=== PATIENT | female | born 1995 | race African-American/Black ===

== ENCOUNTER 2016-05-28 00:45 | Emergency (ER) | payer MEDICAID, OTHER, SELFPAY ==
[2016-05-28] MEDS ORDERED: HYDROcodone/Acetaminophen 10/325 mg Tablet ONE (01:36)
[2016-05-28] MEDS ORDERED: Naproxen 500 MG TAB ONE (01:37)
[2016-05-28] MEDS ORDERED: Sulfameth/Trimethoprim DS 800-160mg TAB ONE (01:37)
[2016-05-28] MEDS ORDERED: cefTRIAXone\\ROCEPHIN 500 MG VIAL ONE (01:37)
[2016-05-28] MEDS ORDERED: Cephalexin 500 MG CAP ONE (01:38)
--- NOTE | 2016-05-28 02:34 | PICIS ---
[facility] EMERGENCY RECORD TRIAGE (00:51 JDEA) TRIAGE NOTES: pt in for complaints of a boil to the back of her neck x two days, states that it was smaller yesterday and has spread since. (00:51 JDEA) PATIENT: NAME: Sneha Lua, AGE: 21, GENDER: female, : Sat1995, TIME OF GREET: SatMay 28, 2016 00:45, PREFERRED LANGUAGE: Vietnamese, ETHNICITY: Not or , FALL RISK: NO, ECODE BILLING MAP: [facility], SSN: [id number], Zip Code: [address], KG WEIGHT: [phone], PHONE: , , , PERSON ID: [id number], PCP: none. (00:51 JDEA) COMPLAINT: BOIL ON NECK. (00:51 JDEA) ADMISSION: URGENCY: 4 Non Urgent, ADMISSION SOURCE: Home, TRANSPORT: Walk-in, BED: TRIAGE. (00:51 JDEA) IMMUNIZATIONS: Flu vaccine not up to date, Tetanus immunization up to date, Pneumococcal vaccine not up to date. (00:52 JDEA) TRIAGE SCREENING: Patient denies suicidal ideation, Patient denies presence of domestic violence. (00:52 JDEA) LMP: Last menstrual period: 05/14/2016. (00:52 JDEA) PROVIDERS: TRIAGE NURSE: Nina Sebastian RN. (00:51 JDEA) VITAL SIGNS: BP 149/86, Pulse 103, Resp 20, Temp 98.2, (Oral), Pain 8, O2 Sat 97, on Room Air, Time 05/28/2016 00:50. (00:50 JDEA) PREVIOUS VISIT ALLERGIES: No Known Allergies. (00:51 JDEA) No Known Allergies. (00:52 JDEA) KNOWN ALLERGIES No Known Allergies CURRENT MEDICATIONS (00:53 JDEA) albuterol sulfate: HFA AEROSOL WITH ADAPTER (GRAM) : Strength - 90 mcg : INHALATION Patient Dose: 2 puff(s) INHALATION every 4 hours prn. VITAL SIGNS (00:50 JDEA) VITAL SIGNS: BP: 149/86, Pulse: 103, Resp: 20, Temp: 98.2 (Oral), Pain: 8, O2 sat: 97 on Room Air, Time: 05/28/2016 00:50. NURSING ASSESSMENT: SKIN (00:53 JDEA) CONSTITUTIONAL: Complex assessment performed, Patient arrives ambulatory, Gait steady, History obtained from patient, Patient appears comfortable, Patient cooperative, Patient alert, Oriented to person, place and time, Skin warm, Skin dry, Skin normal in color, Mucous membranes pink, Mucous membranes moist, Patient complains of neck pain, pt in for complaints of an area of swelling to the posterior surface of her neck, states it has been there for two days and has gotten worse not better, states she feels like it is spreading without drainage. PAIN: dull pain, constant, on a scale 0-10 patient rates pain as 8. &a-1R&a+25V*p+0X*s8117V*c202B*c15G*c2P*p-0X&a-25V&a+1R Name: Sneha Lua : 1995 F21 MedRec: [id number] AcctNum: [id number] Prepared: SatMay 28, 2016 02:09 by Interface Page 1 of 7 pMD [facility] EMERGENCY RECORD SKIN: Skin assessment findings include skin warm, Skin dry, Skin normal in color. ENRIQUE SCALE: (4) Sensory perception has no impairment, (3) Skin is occasionally moist, (3) Patient walks occasionally, (3) Slightly limited mobility, (3) Adequate nutrition, (2) Patient has potential problem moving, Enrique Risk Total: 18. NOTES: Patient tolerated procedure well. SAFETY: Side rails up, Cart/Stretcher in lowest position, Family at bedside, Call light within reach, Hospital ID band on. NURSING PROCEDURE: DISCHARGE NOTE (01:59 JDEA) DISCHARGE: Patient discharged to home, ambulating without assistance, family driving, accompanied by other family member, Summary of Care printed/ provided, Patient requested and was provided an electronic copy of Discharge Instructions, Transition record given to patient, Discharge instructions given to patient, Simple or moderate discharge teaching performed, Prescriptions given and instructions on side effects given, Above person(s) verbalized understanding of discharge instructions and follow-up care, Patient treated and evaluated by physician. BELONGINGS: Belongings and valuables with patient at time of discharge include:, Belongings remain with patient. ORDER DETAILS Order Name: Culture & GS, Bacterial/Wound, Status: Active, Time: 01:34 05/28/2016, User: LEONARD, - Ordered for: MD Gaytan Lloyd, - Entered by: MD Gaytan Lloyd - SatMay 28, 2016 01:34, - Quantity: 1. MEDICATION ADMINISTRATION SUMMARY Drug Name: Stamford, Dose Ordered: 10-325 mg, Route: Oral, Status: Given, Time: 01:56 05/28/2016, Drug Name: Septra DS, Dose Ordered: 1 tab(s), Route: Oral, Status: Given, Time: 01:56 05/28/2016, Drug Name: Naprosyn, Dose Ordered: 500 mg, Route: Oral, Status: Given, Time: :56 05/28/2016, Drug Name: Cefanex, Dose Ordered: 500 mg, Route: Oral, Status: Given, Time: 01:56 05/28/2016, Detailed record available in Medication Service section. MEDICATION SERVICE (01:56 LEONARD) Cefanex: Order: Cefanex (cephalexin monohydrate) - Dose: 500 mg : Oral Schedule: Now Ordered by: Joaquin Gaytan MD Entered by: Joaquin Gaytan MD SatMay 28, 2016 01:32 , &a-1R&a+25V*p+0X*v7192S*c202B*c15G*c2P*p-0X&a-25V&a+1R Name: Sneha Lua : 1995 F21 MedRec: [id number] AcctNum: [id number] Prepared: SatMay 28, 2016 02:09 by Interface Page 2 of 7 pMD [facility] EMERGENCY RECORD Acknowledged by: Nina Sebastian RN SatMay 28, 2016 01:33 Documented as given by: Nina Sebastian RN SatMay 28, 2016 01:56 Patient, Medication, Dose, Route and Time verified prior to administration. Amount given: 1 tab, Site: Medication administered P.O., Correct patient, time, route, dose and medication confirmed prior to administration, Patient advised of actions and side-effects prior to administration, Allergies confirmed and medications reviewed prior to administration, Patient in position of comfort, Side rails up, Cart in lowest position, Family at bedside, Call light in reach. Naprosyn: Order: Naprosyn (naproxen) - Dose: 500 mg : Oral Schedule: Now Ordered by: Joaquin Gaytan MD Entered by: Joaquin Gaytan MD SatMay 28, 2016 01:32 , Acknowledged by: Nina Sebastian RN SatMay 28, 2016 01:33 Documented as given by: Nina Sebastian RN SatMay 28, 2016 01:56 Patient, Medication, Dose, Route and Time verified prior to administration. Amount given: 1 tab, Site: Medication administered P.O., Correct patient, time, route, dose and medication confirmed prior to administration, Patient advised of actions and side-effects prior to administration, Allergies confirmed and medications reviewed prior to administration, Patient in position of comfort, Side rails up, Cart in lowest position, Family at bedside, Call light in reach. Stamford: Order: Stamford (hydrocodone bitartrate/acetaminophen) - Dose: 10-325 mg : Oral Schedule: Now Ordered by: Joaquin Gaytan MD Entered by: Joaquin Gaytan MD SatMay 28, 2016 01:32 , Acknowledged by: Nina Sebastian RN SatMay 28, 2016 01:33 Documented as given by: Nina Sebastian RN SatMay 28, 2016 01:56 Patient, Medication, Dose, Route and Time verified prior to administration. Amount given: 1 tab, Site: Medication administered P.O., Correct patient, time, route, dose and medication confirmed prior to administration, Patient advised of actions and side-effects prior to administration, Allergies confirmed and medications reviewed prior to administration, Patient in position of comfort, Side rails up, Cart in lowest position, Family at bedside, Call light in reach. Septra DS: Order: Septra DS (sulfamethoxazole/trimethoprim) - Dose: 1 tab(s) : Oral Schedule: Now Ordered by: Joaquin Gaytan MD Entered by: Joaquin Gaytan MD SatMay 28, 2016 01:32 , Acknowledged by: Nina Sebastian RN SatMay 28, 2016 01:33 Documented as given by: Nina Sebastian RN SatMay 28, 2016 01:56 Patient, Medication, Dose, Route and Time verified prior to administration. Amount given: 1 tab, Site: Medication administered P.O., Correct &a-1R&a+25V*p+0X*h2482M*c202B*c15G*c2P*p-0X&a-25V&a+1R Name: Sneha Lua : 1995 F21 MedRec: [id number] AcctNum: [id number] Prepared: SatMay 28, 2016 02:09 by Interface Page 3 of 7 pMD [facility] EMERGENCY RECORD patient, time, route, dose and medication confirmed prior to administration, Patient advised of actions and side-effects prior to administration, Allergies confirmed and medications reviewed prior to administration, Patient in position of comfort, Side rails up, Cart in lowest position, Family at bedside, Call light in reach. HPI ABSCESS (01:42 LLDO) CHIEF COMPLAINT: Patient presents for evaluation of swelling, Patient presents for evaluation of pain, Denies drainage from wound, Denies suspected foreign body, Patient presents for evaluation of has had numerous superficial skin abscesses before now, but none were ever large enough to require I&D. this one about the size of a quarter and very painful. can't sleep or move her head. HISTORIAN: History provided by patient, History provided by patient's family, MOM. LOCATION: Symptoms are localized. QUALITY: Pain is dull in nature, described as aching, described as pressure-like, described as BECOMES SHARP WITH MOVEMENT OR PALPATION. SEVERITY: Maximum severity of symptoms severe, Currently symptoms are moderate, MODERATE AT REST. TIME COURSE: Gradual onset of symptoms, Symptoms are worsening, are constant. ASSOCIATED WITH: No associated chills, No associated drainage, No associated fever, No associated nausea, No associated proximal streaking, Associated with warmth, Denies any other complaints. COMPLICATING FACTORS: No complicating factors for wound healing. EXACERBATED BY: Patient's condition exacerbated by MOVEMENT, PALPATION. RELIEVED BY: Patient's condition relieved by nothing. TETANUS: Tetanus status up to date. ROS CONSTITUTIONAL: Negative constitutional review of systems. (01:45 LLDO) EYES: Negative eye review of systems, Historian denies eye pain, denies eye redness, denies eye discharge. (01:47 LLDO) ENT: Negative ears, nose, throat review of systems, Historian denies epistaxis, denies rhinorrhea, denies sinus pain, denies sore throat. (01:47 LLDO) MUSCULOSKELETAL: Historian reports neck pain. (01:45 LLDO) SKIN: Historian reports skin changes, reports skin lesions. IN HPI. (01:45 LLDO) NEUROLOGIC: Negative neurologic review of systems, Historian denies confusion, denies dizziness, denies focal weakness, denies mental status changes. (01:47 LLDO) HEMO/LYMPHATIC: Normal hematologic/lymphatic system review, Historian denies abnormal blood clotting, denies gum bleeding, denies petechiae. (01:47 LLDO) &a-1R&a+25V*p+0X*k0692J*c202B*c15G*c2P*p-0X&a-25V&a+1R Name: Sneha Lua : 1995 F21 MedRec: [id number] AcctNum: [id number] Prepared: SatMay 28, 2016 02:09 by Interface Page 4 of 7 pMD [facility] EMERGENCY RECORD ALLERGIC/IMMUNOLOGIC: Normal allergy/immunologic system review, Historian denies eczema, denies environmental allergies, denies food allergies. (01:47 LLDO) PSYCHIATRIC: Negative psychiatric review of systems, Historian denies alcohol abuse, denies anxiety, denies depression, denies drug abuse, denies hallucinations. (01:47 LLDO) NOTES: All systems reviewed, negative except as described above. (01:45 LLDO) PAST MEDICAL HISTORY MEDICAL HISTORY: NIDDM, ASTHMA, OBESITY GOUT. (00:52 JDEA) FEMALE SURGICAL HISTORY: Surgical history of tonsillectomy, ADENOIDS. (00:52 JDEA) PSYCHIATRIC HISTORY: Psychiatric history includes, bipolar disorder, ADHD. (00:52 JDEA) SOCIAL HISTORY: Lives at home, with family, Patient denies alcohol use, Patient denies drug use, Patient currently uses tobacco, smokes cigarettes, daily, Patient smokes 1 pack per day. (00:52 JDEA) NOTES: Nursing records reviewed, Agree with nursing records, Medication list reviewed. (01:46 LLDO) PHYSICAL EXAM CONSTITUTIONAL: Vital signs reviewed, Patient afebrile, Pulse, tachycardic, 103, Blood pressure, BP ELEVATED SLIGHTLY, Respiratory rate normal, Patient appears, uncomfortable, Patient appears in pain, in moderate pain distress, INTERMITTENTLY SEVERE, Patient alert and oriented to person, place and time. (01:45 LLDO) HEAD: Head exam normal, Head exam included findings of head atraumatic, normocephalic. (01:47 LLDO) EYES: Eye exam normal, Eye exam included findings of eyelids normal to inspection, Pupils equally round and reactive to light, Extraocular muscles intact. (01:47 LLDO) ENT: ENT exam normal, Ear exam normal, Nose exam normal. (01:47 LLDO) NECK: Tenderness, midline, SEE HPI. (01:45 LLDO) BACK: Back exam normal, Back exam included findings of normal inspection, range of motion normal. (01:47 LLDO) UPPER EXTREMITY: Upper extremity exam normal, Upper extremity exam included findings of inspection normal, Range of motion normal. (01:47 LLDO) LOWER EXTREMITY: Lower extremity exam normal, Lower extremity exam included findings of inspection normal, Range of motion normal. (01:47 LLDO) NEURO: Neuro exam normal, Neuro exam findings include patient oriented to person, place and time, Speech normal, Terra coma scale &a-1R&a+25V*p+0X*g9737E*c202B*c15G*c2P*p-0X&a-25V&a+1R Name: Sneha Lua : 1995 F21 MedRec: [id number] AcctNum: [id number] Prepared: SatMay 28, 2016 02:09 by Interface Page 5 of 7 pMD [facility] EMERGENCY RECORD 15. (01:47 LLDO) SKIN: Skin exam included findings of skin warm, dry, and normal in color, ABSCESS NOTED ABOVE. (01:45 LLDO) PSYCHIATRIC: Psychiatric exam normal, Psychiatric exam included findings of patient oriented to person place and time, Normal affect. (01:47 LLDO) EVENTS TRANSFER: Triage to Emergency Triage. (SatMay 28, 2016 00:51 JDEA) Emergency Triage to Main ED -05. (00:52 JDEA) Removed from Emergency Main ED -05. (02:00 JDEA) INCISION AND DRAINAGE (01:47 LLDO) TIMEOUT: Side and/or site verified, Patient identification confirmed, Sterile procedures observed. INCISION AND DRAINAGE: Side and/or site verified, Patient identification confirmed, Sterile procedures observed, Verbal consent obtained, Incision and drainage indicated for cutaneous abscess, There are no contraindications, 1% Lidocaine without epinephrine used, 6 mLs, Incision and drainage of skin abscess, Incision was made over area of fluctuance, Explored for loculations, Irrigated, Packed with sterile gauze, Drained serosanguinous, After procedure, wound dressed, After procedure, neurovascular status normal, There were no complications, Tetanus status up to date, Patient tolerated the procedure with difficulty, see hpi. PROBLEM LIST No recorded problems DIAGNOSIS (01:35 LLDO) FINAL: PRIMARY: Abscess on posterior neck. DISPOSITION PATIENT: Disposition Type: Discharge, Disposition: *Discharge Home. (:35 LLDO) Patient left the department. (02:00 JDEA) INSTRUCTION (:38 LLDO) DISCHARGE: ABSCESS, I AND D. FOLLOWUP: Follow up with Primary Care Physician as needed. SPECIAL: Follow-up with your PCP. PRESCRIPTION (01:36 LLDO) Keflex: CAPSULE (HARD, SOFT, ETC.) : 500 mg : ORAL : Quantity: 1 Unit: cap(s) Route: ORAL Schedule: 3 times a day Dispense: 30 May substitute. Refills: No Refills . NOTES: No Refills. Septra DS: TABLET : 800 mg-160 mg : ORAL : Quantity: 1 &a-1R&a+25V*p+0X*k9179X*c202B*c15G*c2P*p-0X&a-25V&a+1R Name: Sneha Lua Kourtney : 1995 F21 MedRec: [id number] AcctNum: [id number] Prepared: SatMay 28, 2016 02:09 by Interface Page 6 of 7 pMD [facility] EMERGENCY RECORD Unit: tab(s) Route: ORAL Schedule: 2 times a day (before meals) Dispense: 20 May substitute. Refills: No Refills . NOTES: ^s=No Refills No Refills. Tylenol-Codeine #3: TABLET : 300 mg-30 mg : ORAL : Quantity: 1-2 Unit: tab(s) Route: ORAL Schedule: every 4 hours prn Dispense: 24 Unit: tab(s) May substitute. Refills: No Refills . NOTES: ^s=^s=No Refills No Refills No Refills. IMAGING (02:00 KALYN) *DISCHARGE INSTRUCTIONS RECEIPT: Image captured from scanner. *SUPPLY CHARGE SHEET: Image captured from scanner. ADMIN (01:52 LEONARD) DIGITAL SIGNATURE: MD Gaytan Lloyd. Chowdary: KALYN=SHAYY Sebastian Justine LLDO=MD Gaytan Lloyd &a-1R&a+25V*p+0X*i7275U*c202B*c15G*c2P*p-0X&a-25V&a+1R Name: Sneha Lua : 1995 F21 MedRec: [id number] AcctNum: [id number] Prepared: SatMay 28, 2016 02:09 by Interface Page 7 of 7 pMD [facility] MEDICATION RECONCILIATION You were seen in the Emergency Department on: SatMay 28, 2016 KNOWN ALLERGIES No Known Allergies MEDICATIONS GIVEN WHILE IN THE EMERGENCY DEPARTMENT Naprosyn (naproxen) - Dose: 500 milligram(s) : Oral [place] (hydrocodone bitartrate/acetaminophen) - Dose: 10-325 milligram(s) : Oral Septra DS (sulfamethoxazole/trimethoprim) - Dose: 1 tab(s) : Oral Cefanex (cephalexin monohydrate) - Dose: 500 milligram(s) : Oral HOME MEDICATIONS CONTINUE PRESCRIBED albuterol sulfate : HFA AEROSOL WITH ADAPTER (GRAM) : Strength - 90 mcg : INHALATION Continue as prescribed Patient had been takin puff(s) INHALATION every 4 hours prn. Notes from the emergency department Reviewed with family Reviewed with patient PRESCRIPTIONS (3) Printed (3) Keflex : CAPSULE (HARD, SOFT, ETC.) : 500 mg : ORAL Quantity: 1, Unit: cap(s), Route: ORAL, Schedule: 3 times a day, Dispense: 30 Septra DS : TABLET : 800 mg-160 mg : ORAL Quantity: 1, Unit: tab(s), Route: ORAL, Schedule: 2 times a day (before meals), Dispense: 20 &a-1R&a+25V*p+0X*i7471Z*c202B*c15G*c2P*p-0X&a-25V&a+1R Name: Sneha Lua : 1995 F21 MedRec: [id number] AcctNum: [id number] Prepared: SatMay 28, 2016 02:09 by Interface pMD CON
--- NOTE | 2016-05-28 02:34 | ERRECORD ---
[facility] EMERGENCY RECORD HPI ABSCESS (01:42 LLDO) CHIEF COMPLAINT: Patient presents for evaluation of swelling, Patient presents for evaluation of pain, Denies drainage from wound, Denies suspected foreign body, Patient presents for evaluation of has had numerous superficial skin abscesses before now, but none were ever large enough to require I&D. this one about the size of a quarter and very painful. can't sleep or move her head. HISTORIAN: History provided by patient, History provided by patient's family, MOM. LOCATION: Symptoms are localized. QUALITY: Pain is dull in nature, described as aching, described as pressure-like, described as BECOMES SHARP WITH MOVEMENT OR PALPATION. SEVERITY: Maximum severity of symptoms severe, Currently symptoms are moderate, MODERATE AT REST. TIME COURSE: Gradual onset of symptoms, Symptoms are worsening, are constant. ASSOCIATED WITH: No associated chills, No associated drainage, No associated fever, No associated nausea, No associated proximal streaking, Associated with warmth, Denies any other complaints. COMPLICATING FACTORS: No complicating factors for wound healing. EXACERBATED BY: Patient's condition exacerbated by MOVEMENT, PALPATION. RELIEVED BY: Patient's condition relieved by nothing. TETANUS: Tetanus status up to date. ROS CONSTITUTIONAL: Negative constitutional review of systems. (:45 LLDO) EYES: Negative eye review of systems, Historian denies eye pain, denies eye redness, denies eye discharge. (:47 LLDO) ENT: Negative ears, nose, throat review of systems, Historian denies epistaxis, denies rhinorrhea, denies sinus pain, denies sore throat. (:47 LLDO) MUSCULOSKELETAL: Historian reports neck pain. (:45 LLDO) SKIN: Historian reports skin changes, reports skin lesions. IN HPI. (:45 LLDO) NEUROLOGIC: Negative neurologic review of systems, Historian denies confusion, denies dizziness, denies focal weakness, denies mental status changes. (:47 LLDO) HEMO/LYMPHATIC: Normal hematologic/lymphatic system review, Historian denies abnormal blood clotting, denies gum bleeding, denies petechiae. (:47 LLDO) ALLERGIC/IMMUNOLOGIC: Normal allergy/immunologic system review, Historian denies eczema, denies environmental allergies, denies food allergies. (:47 LLDO) PSYCHIATRIC: Negative psychiatric review of systems, Historian denies alcohol abuse, denies anxiety, denies depression, denies drug abuse, denies hallucinations. (01:47 LLDO) &a-1R&a+25V*p+0X*a3735G*c202B*c15G*c2P*p-0X&a-25V&a+1R Name: Sneha Lua : 1995 F21 MedRec: [id number] AcctNum: [id number] Prepared: SatMay 28, 2016 02:03 by Interface Page 1 of 4 pMD [facility] EMERGENCY RECORD NOTES: All systems reviewed, negative except as described above. (01:45 LLDO) PAST MEDICAL HISTORY MEDICAL HISTORY: NIDDM, ASTHMA, OBESITY GOUT. (00:52 JDEA) FEMALE SURGICAL HISTORY: Surgical history of tonsillectomy, ADENOIDS. (00:52 JDEA) PSYCHIATRIC HISTORY: Psychiatric history includes, bipolar disorder, ADHD. (00:52 JDEA) SOCIAL HISTORY: Lives at home, with family, Patient denies alcohol use, Patient denies drug use, Patient currently uses tobacco, smokes cigarettes, daily, Patient smokes 1 pack per day. (00:52 JDEA) NOTES: Nursing records reviewed, Agree with nursing records, Medication list reviewed. (01:46 LLDO) KNOWN ALLERGIES No Known Allergies CURRENT MEDICATIONS (00:53 JDEA) albuterol sulfate: HFA AEROSOL WITH ADAPTER (GRAM) : Strength - 90 mcg : INHALATION Patient Dose: 2 puff(s) INHALATION every 4 hours prn. VITAL SIGNS (00:50 JDEA) VITAL SIGNS: BP: 149/86, Pulse: 103, Resp: 20, Temp: 98.2 (Oral), Pain: 8, O2 sat: 97 on Room Air, Time: 05/28/2016 00:50. PHYSICAL EXAM CONSTITUTIONAL: Vital signs reviewed, Patient afebrile, Pulse, tachycardic, 103, Blood pressure, BP ELEVATED SLIGHTLY, Respiratory rate normal, Patient appears, uncomfortable, Patient appears in pain, in moderate pain distress, INTERMITTENTLY SEVERE, Patient alert and oriented to person, place and time. (01:45 LLDO) HEAD: Head exam normal, Head exam included findings of head atraumatic, normocephalic. (01:47 LLDO) EYES: Eye exam normal, Eye exam included findings of eyelids normal to inspection, Pupils equally round and reactive to light, Extraocular muscles intact. (01:47 LLDO) ENT: ENT exam normal, Ear exam normal, Nose exam normal. (01:47 LLDO) NECK: Tenderness, midline, SEE HPI. (01:45 LLDO) BACK: Back exam normal, Back exam included findings of normal inspection, range of motion normal. (01:47 LLDO) UPPER EXTREMITY: Upper extremity exam normal, Upper extremity exam included findings of inspection normal, Range of motion normal. &a-1R&a+25V*p+0X*w1058T*c202B*c15G*c2P*p-0X&a-25V&a+1R Name: Sneha Lua : 1995 F21 MedRec: [id number] AcctNum: [id number] Prepared: SatMay 28, 2016 02:03 by Interface Page 2 of 4 pMD [facility] EMERGENCY RECORD (01:47 LLDO) LOWER EXTREMITY: Lower extremity exam normal, Lower extremity exam included findings of inspection normal, Range of motion normal. (01:47 LLDO) NEURO: Neuro exam normal, Neuro exam findings include patient oriented to person, place and time, Speech normal, Edison coma scale 15. (01:47 LLDO) SKIN: Skin exam included findings of skin warm, dry, and normal in color, ABSCESS NOTED ABOVE. (01:45 LLDO) PSYCHIATRIC: Psychiatric exam normal, Psychiatric exam included findings of patient oriented to person place and time, Normal affect. (01:47 LLDO) MEDICATION ADMINISTRATION SUMMARY Drug Name: Fulton, Dose Ordered: 10-325 mg, Route: Oral, Status: Given, Time: :56 05/28/2016, Drug Name: Septra DS, Dose Ordered: 1 tab(s), Route: Oral, Status: Given, Time: :05/28/2016, Drug Name: Naprosyn, Dose Ordered: 500 mg, Route: Oral, Status: Given, Time: :56 05/28/2016, Drug Name: Cefanex, Dose Ordered: 500 mg, Route: Oral, Status: Given, Time: :05/28/2016, Detailed record available in Medication Service section. PROBLEM LIST No recorded problems DIAGNOSIS (01:35 LLDO) FINAL: PRIMARY: Abscess on posterior neck. PRESCRIPTION (:36 LLDO) Keflex: CAPSULE (HARD, SOFT, ETC.) : 500 mg : ORAL : Quantity: 1 Unit: cap(s) Route: ORAL Schedule: 3 times a day Dispense: 30 May substitute. Refills: No Refills . NOTES: No Refills. Septra DS: TABLET : 800 mg-160 mg : ORAL : Quantity: 1 Unit: tab(s) Route: ORAL Schedule: 2 times a day (before meals) Dispense: 20 May substitute. Refills: No Refills . NOTES: ^s=No Refills No Refills. Tylenol-Codeine #3: TABLET : 300 mg-30 mg : ORAL : Quantity: 1-2 Unit: tab(s) Route: ORAL Schedule: every 4 hours prn Dispense: 24 Unit: tab(s) May substitute. Refills: No Refills . NOTES: ^s=^s=No Refills No Refills No Refills. &a-1R&a+25V*p+0X*y7747D*c202B*c15G*c2P*p-0X&a-25V&a+1R Name: Sneha Lua : 1995 F21 MedRec: [id number] AcctNum: [id number] Prepared: Layne May 28, 2016 02:03 by Interface Page 3 of 4 pMD [facility] EMERGENCY RECORD DISPOSITION PATIENT: Disposition Type: Discharge, Disposition: *Discharge Home. (01:35 LLDO) Patient left the department. (02:00 KALYN) Chowdary: KALYN=SHAYY Sebastian, Nina VALLE=MD Gaytan Lloyd &a-1R&a+25V*p+0X*s5416G*c202B*c15G*c2P*p-0X&a-25V&a+1R Name: Sneha Lua : 1995 F21 MedRec: [id number] AcctNum: [id number] Prepared: Layne May 28, 2016 02:03 by Interface Page 4 of 4 pMD MTDD
[2016-05-28] MEDS ORDERED: Lidocaine 1% 20 ML MDV ONE (08:33)
== END 2016-05-28 01:59 | disposition home or self-care (01) ==
LOC: MADERS 00:45
DX: L02.11 Cutaneous abscess of neck (principal); F90.9 Attention-deficit hyperactivity disorder, unspecified type; E11.9 Type 2 diabetes mellitus without complications; J45.909 Unspecified asthma, uncomplicated; F17.210 Nicotine dependence, cigarettes, uncomplicated; F31.9 Bipolar disorder, unspecified
CPT/HCPCS: 10060; 87070; 87205; J0696; J2001

== ENCOUNTER 2016-10-03 14:20 | Emergency (ER) | payer OTHER, SELFPAY ==
[2016-10-03] MEDS ORDERED: Acetaminophen/Codeine 30-300mg Tablet ONE (14:48)
[2016-10-03] MEDS ORDERED: Penicillin V Potassium 250 MG TAB ONE (14:48)
== END 2016-10-03 14:50 | disposition home or self-care (01) ==
LOC: MADERS 14:20
DX: K12.2 Cellulitis and abscess of mouth (principal); J45.909 Unspecified asthma, uncomplicated; E11.9 Type 2 diabetes mellitus without complications; F31.9 Bipolar disorder, unspecified; F90.9 Attention-deficit hyperactivity disorder, unspecified type; F17.210 Nicotine dependence, cigarettes, uncomplicated
CPT/HCPCS: 99283

== ENCOUNTER 2018-07-29 20:35 | Emergency (ER) | payer MEDICAID, SELFPAY ==
[2018-07-29] MEDS ORDERED: HYDROcodone/Acetaminophen 5/325 mg Tablet ONE (20:57)
[2018-07-29] MEDS ORDERED: Clindamycin 150 MG CAP ONE (20:57)
[2018-07-29] MEDS ORDERED: Lidocaine 2% w/Epinephrine 1:200K 20 ML VIAL ONE (20:57)
[2018-07-29] MEDS ORDERED: Dexamethasone 10 MG/ML VIAL ONE (21:41)
[2018-07-29] MEDS ORDERED: Bacitracin Zinc 1 Packet ONE (21:52)
== END 2018-07-29 22:00 | disposition home or self-care (01) ==
LOC: MADERS 20:35
DX: L02.212 Cutaneous abscess of back [any part, except buttock and flank] (principal); L02.11 Cutaneous abscess of neck; L03.312 Cellulitis of back [any part except buttock and flank]; L03.221 Cellulitis of neck; E11.9 Type 2 diabetes mellitus without complications; J45.909 Unspecified asthma, uncomplicated; F31.9 Bipolar disorder, unspecified; F90.9 Attention-deficit hyperactivity disorder, unspecified type; F17.210 Nicotine dependence, cigarettes, uncomplicated
CPT/HCPCS: 10061; J1100

== ENCOUNTER 2020-08-15 19:29 | Emergency (ER) | payer BC ==
[2020-08-15] MEDS ORDERED: Acetaminophen 500 MG TAB ONE (20:10)
[2020-08-15] MEDS ORDERED: Dicyclomine 10 MG CAP ONE (20:11)
[2020-08-15 20:32] LABS: Bilirubin Negative (Negative); Blood, Urine Large (Negative); Clarity Clear (Clear); Glucose, Urine (Dipstick) Negative (Negative); Ketone, Urine Negative (Negative); Leukocyte Negative (Negative); Nitrite Negative (Negative); Protein, Urine (Dipstick) Negative (Neg-Trace); Specific Gravity, Urine 1.025 (1.005-1.030); Urobilinogen 0.2 mg/dL (Less than 2)
[2020-08-15 20:33] LABS: Pregnancy Test - Urine (BHCG) Negative (Negative); Pregu Control Background? CLEAR/WHITE (CLR/WHITE); Pregu Control Bar Appear? YES (CONTROL BAR); Specific Gravity 1.025 (1.002-1.036)
[2020-08-15 20:41] LABS: ALT (SGPT) 13 U/L (8-55); AST (SGOT) 13 U/L (5-34); Alkaline Phosphatase 96 U/L (40-110); Anion Gap 17 mmol/L (10-20); BUN (Urea Nitrogen) 10 mg/dL (7.0-18.7); Bilirubin, Total 0.2 mg/dL (0.2-1.2); Calc. Creatinine Clearance 0 mL/min (70-130); Calcium 8.8 mg/dL (7.8-10.44); Carbon Dioxide 22 mmol/L (22-29); Chloride 106 mmol/L (98-107); Globulin 3.4 g/dL (2.4-3.5); Glucose 195 mg/dL (70-105); Potassium 4.6 mmol/L (3.5-5.1); Protein, Total 7.4 g/dL (6.0-8.3); Sodium 140 mmol/L (136-145)
[2020-08-15 20:46] LABS: Bacteria/HPF Rare-Few HPF (None Seen); WBC/HPF 0-3 HPF (0-3)
[2020-08-15 21:00] LABS: #Basophils 0.1 thou/uL (0.0-0.2); #Eosinphils 0.2 thou/uL (0.0-0.7); #Lymphocytes 4.2 thou/uL (1.20-3.40); #Monocytes 1.1 thou/uL (0.11-0.59); #Neutrophils 9.9 thou/uL (1.40-6.50); %Basophils 0.8 % (0.0-1.0); %Eosinophils 1.5 % (0.0-10.0); %Monocytes 7.1 % (0.0-10.0); %Neutrophils 63.6 % (42.0-75.0); Anisocytosis SLIGHT = 6-15 cells (100X) (0-5/hpf); Hemoglobin 9.6 g/dL (12.0-16.0); Hypochromia SLIGHT = 6-15 cells (100X) (0-5/hpf); MDiff Complete? YES; Mean Corpuscular HGB CONC 27.5 g/dL (32.0-36.0); Mean Corpuscular Volume 65.5 fL (78.0-98.0); Mean Platelet Volume 9.6 fL (7.4-10.4); Microcytosis SLIGHT = 6-15 cells (100X) (0-5/hpf); Ovalocytes SLIGHT = 2-5 cells (100X) (0-1/hpf); Platelet Count 448 thou/uL (130-400); Platelet Morphology Comment Appears Adequate; RBC Distribution Width 17.8 % (11.5-14.5); Red Blood Cell (RBC) Count 5.33 mill/uL (4.20-5.40); White Blood Cell (WBC) Count 15.6 thou/uL (4.8-10.8)
== END 2020-08-15 21:55 | disposition home or self-care (01) ==
LOC: MADERS 19:29
DX: K52.9 Noninfective gastroenteritis and colitis, unspecified (principal); D50.9 Iron deficiency anemia, unspecified; E11.9 Type 2 diabetes mellitus without complications; J45.909 Unspecified asthma, uncomplicated; F17.210 Nicotine dependence, cigarettes, uncomplicated
CPT/HCPCS: 36416; 80053; 81003; 81015; 81025; 85025; 99284; J0500

== ENCOUNTER 2020-11-25 09:57 | Outpatient (CLI) | payer BC | END 2020-11-25 09:58 | disposition home or self-care (01) | LOC: MADRAD 09:57 | PROVIDERS: ATTEND Family Medicine | DX: Z11.1 Encounter for screening for respiratory tuberculosis (principal) | CPT/HCPCS: 71046 ==

== ENCOUNTER 2021-01-18 08:38 | Observation (INO) | payer BC ==
[2021-01-18] MEDS ORDERED: Ondansetron ODT 4 MG TAB PO PRN (09:05)
[2021-01-18 09:47] LABS: Hemoglobin 6.3 g/dL (12.0-16.0); Mean Corpuscular HGB CONC 25.8 g/dL (32.0-36.0); Mean Corpuscular Hemoglobin 14.3 pg (27.0-31.0); Mean Corpuscular Volume 55.3 fL (78.0-98.0); Mean Platelet Volume 9.5 fL (7.4-10.4); Platelet Count 405 thou/uL (130-400); RBC Distribution Width 15.1 % (11.5-14.5); Red Blood Cell (RBC) Count 4.38 mill/uL (4.20-5.40); White Blood Cell (WBC) Count 9.9 thou/uL (4.8-10.8)
[2021-01-18 11:28] VITALS: BMI 53.9
[2021-01-18] MEDS: Acetaminophen 325 MG TAB PO PRN (13:27)
[2021-01-18 16:41] VITALS: TEMP 98.5
[2021-01-18 18:26] VITALS: BP 164/79
== END 2021-01-18 18:25 | disposition home or self-care (01) ==
LOC: MADMS 08:38
PROVIDERS: ADMIT Family Medicine; ATTEND Family Medicine
DX: N93.9 Abnormal uterine and vaginal bleeding, unspecified (principal); D50.0 Iron deficiency anemia secondary to blood loss (chronic); E11.9 Type 2 diabetes mellitus without complications; R03.0 Elevated blood-pressure reading, without diagnosis of hypertension; F17.210 Nicotine dependence, cigarettes, uncomplicated; E66.01 Morbid (severe) obesity due to excess calories; Z68.43 Body mass index [BMI] 50.0-59.9, adult; Z79.84 Long term (current) use of oral hypoglycemic drugs; Z79.899 Other long term (current) drug therapy; Z97.5 Presence of (intrauterine) contraceptive device
CPT/HCPCS: 36415; 36430; 85027; 86850; 86900; 86901; G0378; P9016

== ENCOUNTER 2023-01-13 19:07 | Emergency (ER) | payer OTHER ==
[2023-01-13] MEDS ORDERED: Lidocaine 1% PF 5 ML VIAL ONE (19:42)
== END 2023-01-13 20:42 | disposition home or self-care (01) ==
LOC: MADERS 19:07
DX: L02.411 Cutaneous abscess of right axilla (principal); E11.9 Type 2 diabetes mellitus without complications; F17.210 Nicotine dependence, cigarettes, uncomplicated
CPT/HCPCS: 10060

== ENCOUNTER 2023-03-08 10:05 | Outpatient (CLI) | payer OTHER | END 2023-03-08 10:06 | disposition home or self-care (01) | LOC: MADRAD 10:05 | PROVIDERS: ATTEND Registered Nurse | DX: M25.571 Pain in right ankle and joints of right foot (principal); M19.071 Primary osteoarthritis, right ankle and foot ==

== ENCOUNTER 2023-04-22 08:11 | Emergency (ER) | payer OTHER | END 2023-04-22 09:55 | disposition home or self-care (01) | LOC: MADERS 08:11 | DX: J06.9 Acute upper respiratory infection, unspecified (principal); E11.9 Type 2 diabetes mellitus without complications; F17.210 Nicotine dependence, cigarettes, uncomplicated | CPT/HCPCS: 87081; 87430; 87804; 99283 ==

== ENCOUNTER 2023-06-25 15:25 | Emergency (ER) | payer OTHER | END 2023-06-25 16:40 | disposition home or self-care (01) | LOC: MADERS 15:25 | DX: J11.1 Influenza due to unidentified influenza virus with other respiratory manifestations (principal); E11.9 Type 2 diabetes mellitus without complications; F17.210 Nicotine dependence, cigarettes, uncomplicated | CPT/HCPCS: 87635; 87804; 99284 ==

== ENCOUNTER 2024-06-04 15:22 | Emergency (ER) | payer OTHER ==
[2024-06-04] MEDS ORDERED: Acetaminophen 500 MG TAB ONE (15:47)
[2024-06-04] MEDS ORDERED: Methocarbamol 500 MG TAB ONE (15:47)
[2024-06-04 16:12] LABS: Pregnancy Test - Urine (BHCG) Negative (Negative); Pregu Control Background? CLEAR/WHITE (CLR/WHITE); Pregu Control Bar Appear? YES (CONTROL BAR); Specific Gravity 1.021 (1.002-1.036)
== END 2024-06-04 16:33 | disposition home or self-care (01) ==
LOC: MADERS 15:22
DX: M65.4 Radial styloid tenosynovitis [de Quervain] (principal); E11.9 Type 2 diabetes mellitus without complications; F17.210 Nicotine dependence, cigarettes, uncomplicated
CPT/HCPCS: 81025; 99283

== ENCOUNTER 2025-03-27 21:15 | Emergency (ER) | payer OTHER ==
[2025-03-27] MEDS ORDERED: Acetaminophen 500 MG TAB ONE (22:05)
[2025-03-27] MEDS ORDERED: Albuterol 200 PUFF (6.7GM INHALER) ONE (22:05)
[2025-03-27] MEDS ORDERED: Ketorolac Tromethamine 30 MG (1 mL) VIAL ONE (22:05)
[2025-03-27] MEDS ORDERED: Ondansetron PF 4 MG/2 ML Vial ONE (22:05)
[2025-03-28 00:25] LABS: Pregnancy Test - Urine (BHCG) Negative (Negative); Pregu Control Background? CLEAR/WHITE (CLR/WHITE); Pregu Control Bar Appear? YES (CONTROL BAR)
[2025-03-28 00:31] LABS: Troponin I Less than 0.010 ng/mL (< 0.028)
[2025-03-28 00:33] LABS: White Blood Cell (WBC) Count 17.4 10x3/uL (4.8-10.8)
[2025-03-28 00:34] LABS: Hematocrit 44.5 % (36.0-47.0); Hemoglobin 13.3 g/dL (12.0-16.0); Mean Corpuscular Hemoglobin 25.2 pg (27.0-31.0); Mean Corpuscular Volume 83.9 fl (78.0-98.0); Platelet Count 259 10x3/uL (130-400); Red Blood Cell (RBC) Count 5.30 mill/uL (4.20-5.40)
[2025-03-28 00:35] LABS: MDiff Complete? YES
[2025-03-28 00:36] LABS: Glucose, Urine (Dipstick) >=1000 mg/dL (Negative); Leukocyte Negative (Negative); Protein, Urine (Dipstick) 30 mg/dL (Neg-Trace); Specific Gravity, Urine 1.025 (1.005-1.030)
[2025-03-28 00:37] LABS: Bacteria/HPF Rare-Few HPF (None Seen); RBC/HPF 0-3 HPF (0-3)
[2025-03-28 00:38] LABS: Anion Gap 15 mmol/L (10-20); Carbon Dioxide 22 mmol/L (22-29); Chloride 102 mmol/L (98-107); Potassium 3.7 mmol/L (3.5-5.1); Sodium 135 mmol/L (136-145)
[2025-03-28 00:39] LABS: AST (SGOT) 18 U/L (11-34); Albumin 3.0 g/dL (3.1-4.5); Alkaline Phosphatase 81 U/L (40-110); BUN (Urea Nitrogen) 10 mg/dL (7.0-18.7); Bilirubin, Total 0.3 mg/dL (0.3-1.2); Calcium 8.3 mg/dL (7.6-10.4); Globulin 3.7 g/dL (2.4-3.5); Glucose 312 mg/dL (70-105)
[2025-03-28 00:40] LABS: ALT (SGPT) 19 U/L (Less than 34)
== END 2025-03-28 00:07 | disposition home or self-care (01) ==
LOC: MADERS 21:15
DX: J20.9 Acute bronchitis, unspecified (principal); E11.65 Type 2 diabetes mellitus with hyperglycemia; R11.2 Nausea with vomiting, unspecified; R29.700 NIHSS score 0; F17.210 Nicotine dependence, cigarettes, uncomplicated; Z79.84 Long term (current) use of oral hypoglycemic drugs
CPT/HCPCS: 71046; 80053; 81001; 81025; 83605; 84484; 85025; 87040; 87400; 87426; 96361; 96374; 96375; J1885; J2405; J7120